=== PATIENT | female | born 1950 | race Caucasian/White ===

== ENCOUNTER 2018-06-24 16:40 | Outpatient (REF) | payer MEDICARE, BC, SELFPAY ==
[2018-06-24 21:26] LABS: Abs Immature Grans 0.03 k/cumm (0.0-0.09); Absolute Basophil Count 0.03 k/cumm (0.0-0.2); Absolute Eosinophil Count 0.08 k/cumm (0.0-0.7); Absolute Lymphocyte Count 1.24 k/cumm (1.2-3.4); Absolute Monocyte Count 0.46 k/cumm (0.11-0.7); Absolute Neutrophil Count 5.34 k/cumm (1.2-6.7); Basophils % 0.4; Eosinophils % 1.1; HCT 34.4 % (36.0-46.0); HGB 11.1 g/dL (12.0-15.5); Immature Grans % 0.4; Lymphocytes % 17.3; Mean Corp. HGB Concentration 32.3 g/dL (32.0-36.0); Mean Corpuscular Hemoglobin 26.9 pg (27.0-33.0); Mean Corpuscular Volume 83.3 fL (80-95); Mean Platelet Volume 9.9 fL (8.0-11.0); Monocytes % 6.4; Neutrophils % 74.4; Platelet Count 393 x1000/uL (130-400); RBC 4.13 m/cumm (4.00-5.20); RBC Distribution Width 13.4 % (11.7-14.6); White Blood Cell Count 7.18 k/cumm (4.4-10.8)
[2018-06-24 21:39] LABS: ALT 33 U/L (12-78); AST 20 U/L (15-37); Alkaline Phosphatase 98 U/L (46-116); Anion Gap 11.9 mmol/L (3-11); BUN 14 mg/dL (7-18); Bilirubin, Total 0.3 mg/dL (0.2-1.0); CO2 25.1 mmol/L (21.0-32.0); CREATININE 0.79 mg/dL (0.55-1.02); Calcium 9.6 mg/dL (8.5-10.1); Chloride 103 mmol/L (98-107); Glucose 114 mg/dL (70-100); Magnesium 1.8 mg/dL (1.8-2.4); Potassium 4.1 mmol/L (3.5-5.1); Sodium 140 mmol/L (136-145); Total Protein 6.9 g/dL (6.4-8.2)
== END 2018-06-24 17:00 ==
LOC: NCHCN 16:40
PROVIDERS: PCP Family Medicine; Visit Provider Family Medicine
DX: R00.2 Palpitations (principal); D64.9 Anemia, unspecified; E87.6 Hypokalemia; I10 Essential (primary) hypertension
CPT/HCPCS: 80053; 83735; 85025

== ENCOUNTER 2018-09-30 14:51 | Outpatient (REF) | payer MEDICARE, BC, SELFPAY ==
[2018-09-30 21:34] LABS: Abs Immature Grans 0.02 k/cumm (0.0-0.09); Absolute Basophil Count 0.05 k/cumm (0.0-0.2); Absolute Eosinophil Count 0.47 k/cumm (0.0-0.7); Absolute Lymphocyte Count 2.18 k/cumm (1.2-3.4); Absolute Monocyte Count 0.57 k/cumm (0.11-0.7); Absolute Neutrophil Count 3.76 k/cumm (1.2-6.7); Basophils % 0.7; Eosinophils % 6.7; HCT 31.7 % (36.0-46.0); HGB 9.8 g/dL (12.0-15.5); Immature Grans % 0.3; Lymphocytes % 30.9; Mean Corp. HGB Concentration 30.9 g/dL (32.0-36.0); Mean Corpuscular Hemoglobin 25.1 pg (27.0-33.0); Mean Corpuscular Volume 81.1 fL (80-95); Mean Platelet Volume 9.9 fL (8.0-11.0); Monocytes % 8.1; Neutrophils % 53.3; Platelet Count 334 x1000/uL (130-400); RBC 3.91 m/cumm (4.00-5.20); RBC Distribution Width 14.4 % (11.7-14.6); White Blood Cell Count 7.05 k/cumm (4.4-10.8)
[2018-09-30 22:08] LABS: Iron 22 ug/dL (50-175)
[2018-09-30 22:17] LABS: ALT 28 U/L (12-78); AST 11 U/L (15-37); Albumin 3.7 g/dL (3.4-5.0); Alkaline Phosphatase 115 U/L (46-116); Anion Gap 9.4 mmol/L (3-11); BUN 20 mg/dL (7-18); Bilirubin, Total 0.2 mg/dL (0.2-1.0); CO2 24.6 mmol/L (21.0-32.0); CREATININE 0.78 mg/dL (0.55-1.02); Calcium 8.8 mg/dL (8.5-10.1); Chloride 106 mmol/L (98-107); Ferritin 9 ng/mL (8-388); Glucose 134 mg/dL (70-100); Magnesium 1.6 mg/dL (1.8-2.4); Potassium 4.3 mmol/L (3.5-5.1); Sodium 140 mmol/L (136-145); TSH (W/Ref FT4) 1.95 uIU/mL (0.358-3.74); Total Protein 6.8 g/dL (6.4-8.2)
== END 2018-09-30 15:11 ==
LOC: NCHCN 14:51
PROVIDERS: PCP Family Medicine; Visit Provider Family Medicine
DX: D64.9 Anemia, unspecified (principal); E87.6 Hypokalemia; F32.9 Major depressive disorder, single episode, unspecified; I10 Essential (primary) hypertension; I25.10 Atherosclerotic heart disease of native coronary artery without angina pectoris
CPT/HCPCS: 80053; 82728; 83540; 83735; 84443; 85025

== ENCOUNTER 2019-01-18 15:27 | Outpatient (REF) | payer MEDICARE, BC, SELFPAY ==
[2019-01-18 21:54] LABS: Abs Immature Grans 0.01 k/cumm (0.0-0.09); Absolute Basophil Count 0.05 k/cumm (0.0-0.2); Absolute Eosinophil Count 0.47 k/cumm (0.0-0.7); Absolute Lymphocyte Count 1.85 k/cumm (1.2-3.4); Absolute Monocyte Count 0.58 k/cumm (0.11-0.7); Absolute Neutrophil Count 3.39 k/cumm (1.2-6.7); Basophils % 0.8; Eosinophils % 7.4; HCT 37.8 % (36.0-46.0); HGB 11.9 g/dL (12.0-15.5); Immature Grans % 0.2; Lymphocytes % 29.1; Mean Corp. HGB Concentration 31.5 g/dL (32.0-36.0); Mean Corpuscular Hemoglobin 27.2 pg (27.0-33.0); Mean Corpuscular Volume 86.3 fL (80-95); Mean Platelet Volume 9.7 fL (8.0-11.0); Monocytes % 9.1; Neutrophils % 53.4; Platelet Count 320 x1000/uL (130-400); RBC 4.38 m/cumm (4.00-5.20); White Blood Cell Count 6.35 k/cumm (4.4-10.8)
[2019-01-18 22:17] LABS: ALT 27 U/L (12-78); AST 20 U/L (15-37); Albumin 4.2 g/dL (3.4-5.0); Alkaline Phosphatase 95 U/L (46-116); Anion Gap 9.3 mmol/L (3-11); BUN 27 mg/dL (7-18); Bilirubin, Total 0.2 mg/dL (0.2-1.0); CO2 27.7 mmol/L (21.0-32.0); CREATININE 0.88 mg/dL (0.55-1.02); Calcium 9.4 mg/dL (8.5-10.1); Chloride 103 mmol/L (98-107); Ferritin 181 ng/mL (8-388); Folate 10.6 ng/mL (8.6-20.0); Glucose 146 mg/dL (70-100); Potassium 3.8 mmol/L (3.5-5.1); Sodium 140 mmol/L (136-145); Vitamin B12 357 pg/mL (193-986)
[2019-01-18 22:42] LABS: Iron 50 ug/dL (50-175); Total Iron Binding Capacity 348 ug/dL (250-450); Transferrin Sat 14 % (15-50)
== END 2019-01-18 15:47 ==
LOC: NCHCN 15:27
PROVIDERS: PCP Family Medicine; Visit Provider Family Medicine
DX: D64.9 Anemia, unspecified (principal); E11.9 Type 2 diabetes mellitus without complications; N39.0 Urinary tract infection, site not specified; R14.0 Abdominal distension (gaseous)
CPT/HCPCS: 80053; 82607; 82728; 82746; 83540; 83550; 85025; 87086

== ENCOUNTER 2019-08-19 18:16 | Outpatient (REF) | payer MEDICARE, BC, SELFPAY ==
[2019-08-19 21:07] LABS: COMMENT (LAB VIEW ONLY) 49.81 mg/dL; Microalb ug/mg Crea 25.5 ug/mg Cr
== END 2019-08-19 18:36 ==
LOC: NCHCN 18:16
PROVIDERS: PCP Family Medicine; Visit Provider Family Medicine
DX: E11.9 Type 2 diabetes mellitus without complications (principal)
CPT/HCPCS: 82043; 82570

== ENCOUNTER 2019-09-27 21:28 | Outpatient (REF) | payer MEDICARE, BC, SELFPAY ==
[2019-09-27 21:23] LABS: HGB 12.2 g/dL (12.0-15.5); Mean Corpuscular Hemoglobin 29.8 pg (27.0-33.0); Mean Corpuscular Volume 90.2 fL (80-95); Mean Platelet Volume 9.7 fL (8.0-11.0); Platelet Count 441 x1000/uL (130-400); RBC Distribution Width 13.3 % (11.7-14.6); White Blood Cell Count 9.89 k/cumm (4.4-10.8)
[2019-09-27 21:33] LABS: ALT 28 U/L (14-59); AST 17 U/L (15-37); Albumin 3.8 g/dL (3.4-5.0); Alkaline Phosphatase 82 U/L (46-116); Anion Gap 10.2 mmol/L (3-11); BUN 20 mg/dL (7-18); Bilirubin, Total 0.1 mg/dL (0.2-1.0); CO2 24.8 mmol/L (21.0-32.0); CREATININE 0.85 mg/dL (0.55-1.02); Calcium 9.9 mg/dL (8.5-10.1); Chloride 102 mmol/L (98-107); Glucose 127 mg/dL (74-106); Potassium 4.4 mmol/L (3.5-5.1); Sodium 137 mmol/L (136-145); Total Protein 6.3 g/dL (6.4-8.2)
== END 2019-09-27 21:48 ==
LOC: NCHCN 21:28
PROVIDERS: PCP Family Medicine; Visit Provider Family Medicine
DX: E78.5 Hyperlipidemia, unspecified (principal); D64.9 Anemia, unspecified; I10 Essential (primary) hypertension
CPT/HCPCS: 80053; 85027

== ENCOUNTER 2020-01-24 10:38 | Outpatient (REF) | payer MEDICARE, BC, SELFPAY ==
[2020-01-24 21:04] LABS: Anion Gap 8.2 mmol/L (3-11); BUN 17 mg/dL (7-18); CO2 28.8 mmol/L (21.0-32.0); CREATININE 0.93 mg/dL (0.55-1.02); Calcium 8.7 mg/dL (8.5-10.1); Chloride 100 mmol/L (98-107); Estimated GFR 59.78 (mL/min/1.73m2); Glucose 112 mg/dL (74-106); Potassium 4.1 mmol/L (3.5-5.1); Sodium 137 mmol/L (136-145)
[2020-01-24 21:14] LABS: Hemoglobin A1C 6.8 % (3.8-5.6)
== END 2020-01-24 10:58 ==
LOC: NCHCN 10:38
PROVIDERS: PCP Family Medicine; Visit Provider Nurse Practitioner Family
DX: I10 Essential (primary) hypertension (principal); E11.9 Type 2 diabetes mellitus without complications
CPT/HCPCS: 80048; 83036

== ENCOUNTER 2020-03-08 22:58 | Outpatient (REF) | payer MEDICARE, BC, SELFPAY ==
[2020-03-08 20:40] LABS: HCT 37.1 % (36.0-46.0); Mean Corp. HGB Concentration 32.3 g/dL (32.0-36.0); Mean Corpuscular Hemoglobin 28.8 pg (27.0-33.0); Mean Corpuscular Volume 89.2 fL (80-95); Mean Platelet Volume 9.9 fL (8.0-11.0); Platelet Count 453 x1000/uL (130-400); RBC 4.16 m/cumm (4.00-5.20); RBC Distribution Width 13.1 % (11.7-14.6); White Blood Cell Count 8.56 k/cumm (4.4-10.8)
[2020-03-08 20:48] LABS: Iron 48 ug/dL (50-170); Total Iron Binding Capacity 408 ug/dL (250-450); Transferrin Sat 12 % (15-50)
[2020-03-08 21:25] LABS: Ferritin 12 ng/mL (8-252)
== END 2020-03-08 23:18 ==
LOC: NCHCN 22:58
PROVIDERS: PCP Family Medicine; Visit Provider Nurse Practitioner Family
DX: M79.7 Fibromyalgia (principal); G43.909 Migraine, unspecified, not intractable, without status migrainosus; D64.9 Anemia, unspecified
CPT/HCPCS: 85027; 82728; 83540; 83550

== ENCOUNTER 2020-05-10 12:36 | Outpatient (REF) | payer MEDICARE, BC, SELFPAY ==
[2020-05-11 17:18] LABS: Abs Immature Grans 0.06 10^3/uL (0.0-0.06); Absolute Basophil Count 0.04 10^3/uL (0.0-0.2); Absolute Eosinophil Count 0.21 10^3/uL (0.0-0.7); Absolute Lymphocyte Count 1.32 10^3/uL (1.2-3.4); Absolute Monocyte Count 0.31 10^3/uL (0.1-0.8); Absolute Neutrophil Count 6.65 10^3/uL (1.2-6.7); Basophils % 0.5; Eosinophils % 2.4; HCT 39.2 % (36.0-46.0); Immature Grans % 0.7; Lymphocytes % 15.4; MCH 26.5 pg (27.0-33.0); MCHC 30.6 % (32.0-36.0); MCV 86.5 fL (80-95); MPV 10.7 fL (8.0-11.0); Monocytes % 3.6; Neutrophils % 77.4; Nucleated RBC 0 %; Platelet Count 379 10^3/uL (130-400); RBC 4.53 10^6/uL (3.93-5.22); RDW 13.3 % (11.7-14.6); RDW-SD 41.5 fL; WBC 8.59 10^3/uL (4.4-10.8)
[2020-05-11 17:20] LABS: ALT 20 U/L (14-59); AST 14 U/L (15-37); Albumin 3.9 g/dL (3.4-5.0); Alkaline Phosphatase 95 U/L (46-116); Anion Gap 8.7 mmol/L (3-11); BUN 22 mg/dL (7-18); Bilirubin, Total 0.2 mg/dL (0.2-1.0); CO2 28.3 mmol/L (21.0-32.0); CREATININE 1.14 mg/dL (0.55-1.02); Calcium 9.8 mg/dL (8.5-10.1); Chloride 99 mmol/L (98-107); Estimated GFR 47.26 (mL/min/1.73m2); Glucose 142 mg/dL (74-106); Magnesium 1.9 mg/dL (1.8-2.4); Potassium 3.8 mmol/L (3.5-5.1); Sodium 136 mmol/L (136-145); TSH (W/Ref FT4) 0.83 uIU/mL (0.36-3.74); Total Protein 6.8 g/dL (6.4-8.2)
== END 2020-05-10 12:56 ==
LOC: NCHCN 12:36
PROVIDERS: PCP Family Medicine; Visit Provider Family Medicine
DX: R53.1 Weakness (principal); R25.1 Tremor, unspecified
CPT/HCPCS: 80053; 83735; 84443; 85025

== ENCOUNTER 2020-11-08 15:50 | Outpatient (REF) | payer MEDICARE, BC, SELFPAY ==
[2020-11-08 14:44] LABS: HCT 33.6 % (36.0-46.0); HGB 10.8 g/dL (11.2-15.7); MCH 26.1 pg (27.0-33.0); MCHC 32.1 % (32.0-36.0); MCV 81.2 fL (80-95); MPV 9.7 fL (8.0-11.0); Platelet Count 377 10^3/uL (130-400); RBC 4.14 10^6/uL (3.93-5.22); RDW 13.1 % (11.7-14.6); RDW-SD 38.7 fL; WBC 6.51 10^3/uL (4.4-10.8)
== END 2020-11-08 15:51 | disposition home or self-care (01) ==
LOC: NCHCN 15:50
PROVIDERS: PCP Family Medicine; Visit Provider Family Medicine
DX: K92.2 Gastrointestinal hemorrhage, unspecified (principal); G89.29 Other chronic pain
CPT/HCPCS: 85027

== ENCOUNTER 2020-11-23 15:00 | Outpatient (REF) | payer MEDICARE, BC, SELFPAY ==
[2020-11-23 15:52] LABS: C-Reactive Protein 0.08 mg/dL (0.0-0.3)
[2020-11-23 21:32] LABS: HCT 32.8 % (36.0-46.0); HGB 10.1 g/dL (11.2-15.7); MCH 25.4 pg (27.0-33.0); MCHC 30.8 % (32.0-36.0); MCV 82.6 fL (80-95); Platelet Count 357 10^3/uL (130-400); RBC 3.97 10^6/uL (3.93-5.22); RDW 13.3 % (11.7-14.6); RDW-SD 40.4 fL; WBC 5.97 10^3/uL (4.4-10.8)
[2020-11-23 21:47] LABS: Rheumatoid Factor <8.6 IU/mL (<12.0)
[2020-11-26 05:26] LABS: Vitamin D 25 Total 29.2 ng/ml (30-100)
[2020-11-26 08:38] LABS: Cyclic Citrullinated Peptide <2.5 U/mL (<5.0)
[2020-11-26 14:41] LABS: ANA Interpretation Negative (Negative)
== END 2020-11-23 15:01 | disposition home or self-care (01) ==
LOC: NCHCN 15:00
PROVIDERS: PCP Family Medicine; Visit Provider Family Medicine
DX: K92.2 Gastrointestinal hemorrhage, unspecified (principal); M13.88 Other specified arthritis, other site; G89.29 Other chronic pain; F32.9 Major depressive disorder, single episode, unspecified; E55.9 Vitamin D deficiency, unspecified
CPT/HCPCS: 82306; 85027; 86200; 86038; 86140; 86431

== ENCOUNTER 2021-01-15 14:26 | Outpatient (REF) | payer MEDICARE, BC, SELFPAY ==
[2021-01-15 14:21] LABS: COMMENT (LAB VIEW ONLY) 56.27 mg/dL; Microalb ug/mg Crea 33.1 ug/mg Cr
== END 2021-01-15 14:27 | disposition home or self-care (01) ==
LOC: LBN 14:26
PROVIDERS: PCP Family Medicine; Visit Provider Family Medicine
DX: E11.9 Type 2 diabetes mellitus without complications (principal)
CPT/HCPCS: 82043; 82570

== ENCOUNTER 2021-03-08 14:11 | Outpatient (REF) | payer MEDICARE, BC, SELFPAY ==
[2021-03-08 14:36] LABS: HCT 33.8 % (36.0-46.0); HGB 10.1 g/dL (11.2-15.7); MCH 25.1 pg (27.0-33.0); MCHC 29.9 % (32.0-36.0); MCV 83.9 fL (80-95); Platelet Count 369 10^3/uL (130-400); RBC 4.03 10^6/uL (3.93-5.22); RDW 17.2 % (11.7-14.6); RDW-SD 53.3 fL; WBC 6.37 10^3/uL (4.4-10.8)
[2021-03-08 14:56] LABS: Anion Gap 8.7 mmol/L (3-11); BUN 23 mg/dL (7-18); CO2 27.3 mmol/L (21.0-32.0); CREATININE 0.8 mg/dL (0.55-1.02); Calcium 9.2 mg/dL (8.5-10.1); Chloride 102 mmol/L (98-107); Glucose 104 mg/dL (74-106); Potassium 4.8 mmol/L (3.5-5.1); Sodium 138 mmol/L (136-145)
== END 2021-03-08 14:12 | disposition home or self-care (01) ==
LOC: NCHCN 14:11
PROVIDERS: PCP Family Medicine; Visit Provider Family Medicine
DX: D50.9 Iron deficiency anemia, unspecified (principal); E11.9 Type 2 diabetes mellitus without complications; E78.5 Hyperlipidemia, unspecified; I10 Essential (primary) hypertension
CPT/HCPCS: 80048; 85027; 83735

== ENCOUNTER 2021-04-16 20:51 | Outpatient (REF) | payer MEDICARE, BC, SELFPAY ==
[2021-04-16 21:41] LABS: HCT 37.7 % (36.0-46.0); HGB 11.9 g/dL (11.2-15.7); MCH 27.2 pg (27.0-33.0); MCHC 31.6 % (32.0-36.0); MCV 86.3 fL (80-95); MPV 9.4 fL (8.0-11.0); Platelet Count 335 10^3/uL (130-400); RBC 4.37 10^6/uL (3.93-5.22); RDW 16.9 % (11.7-14.6); RDW-SD 53.5 fL; WBC 6.47 10^3/uL (4.4-10.8)
[2021-04-16 22:06] LABS: Ferritin 116 ng/mL (8-252)
[2021-04-16 22:16] LABS: Iron 46 ug/dL (50-170)
== END 2021-04-16 20:52 | disposition home or self-care (01) ==
LOC: NCHCN 20:51
PROVIDERS: PCP Family Medicine; Visit Provider Family Medicine
DX: D50.9 Iron deficiency anemia, unspecified (principal)
CPT/HCPCS: 85027; 82728; 83540

== ENCOUNTER 2021-06-27 11:47 | Outpatient (REF) | payer MEDICARE, BC, SELFPAY ==
[2021-06-27 22:31] LABS: HCT 33.2 % (36.0-46.0); HGB 10.5 g/dL (11.2-15.7); MCH 29.5 pg (27.0-33.0); MCHC 31.6 % (32.0-36.0); MCV 93.3 fL (80-95); MPV 9.8 fL (8.0-11.0); Platelet Count 322 10^3/uL (130-400); RBC 3.56 10^6/uL (3.93-5.22); RDW 13.1 % (11.7-14.6); RDW-SD 44.5 fL; WBC 6.02 10^3/uL (4.4-10.8)
== END 2021-06-27 11:48 | disposition home or self-care (01) ==
LOC: NCHCN 11:47
PROVIDERS: PCP Family Medicine; Visit Provider Family Medicine
DX: D50.9 Iron deficiency anemia, unspecified (principal)
CPT/HCPCS: 85027

== ENCOUNTER 2021-12-12 18:21 | Outpatient (REF) | payer MEDICARE, BC, SELFPAY | END 2021-12-12 18:22 | disposition home or self-care (01) | LOC: NCHCN 18:21 | PROVIDERS: PCP Family Medicine; Visit Provider Family Medicine | DX: R30.0 Dysuria (principal) | CPT/HCPCS: 87086 ==

== ENCOUNTER 2022-01-02 21:08 | Outpatient (REF) | payer MEDICARE, BC, SELFPAY ==
[2022-01-02 21:52] LABS: COMMENT (LAB VIEW ONLY) 62.11 mg/dL; Microalb ug/mg Crea 6.8 ug/mg Cr
[2022-01-02 21:55] LABS: Anion Gap 10.3 mmol/L (3-11); BUN 16 mg/dL (7-18); CO2 26.7 mmol/L (21.0-32.0); CREATININE 1.2 mg/dL (0.55-1.02); Calcium 9.2 mg/dL (8.5-10.1); Calculated LDL 158 mg/dL (<100); Chloride 100 mmol/L (98-107); Cholesterol 266 mg/dL (<200); Estimated GFR 44.29 (mL/min/1.73m2); Glucose 145 mg/dL (74-106); HDL Cholesterol 55 mg/dL (40-60); Sodium 137 mmol/L (136-145); Triglyceride 266 mg/dL (<150)
== END 2022-01-02 21:09 | disposition home or self-care (01) ==
LOC: NCHCN 21:08
PROVIDERS: PCP Family Medicine; Visit Provider Family Medicine
DX: E11.9 Type 2 diabetes mellitus without complications (principal); E78.5 Hyperlipidemia, unspecified; I10 Essential (primary) hypertension; R30.0 Dysuria
CPT/HCPCS: 80048; 80061; 87077; 82043; 82570; 87086; 87186

== ENCOUNTER 2022-03-14 11:31 | Outpatient (REF) | payer MEDICARE, BC, SELFPAY ==
[2022-03-14 15:28] LABS: Anion Gap 9.6 mmol/L (3-11); BUN 20 mg/dL (7-18); CO2 28.4 mmol/L (21.0-32.0); CREATININE 0.8 mg/dL (0.55-1.02); Calcium 9.1 mg/dL (8.5-10.1); Chloride 101 mmol/L (98-107); Glucose 134 mg/dL (74-106); Potassium 4.2 mmol/L (3.5-5.1); Sodium 139 mmol/L (136-145)
== END 2022-03-14 11:32 | disposition home or self-care (01) ==
LOC: NCHCN 11:31
PROVIDERS: PCP Family Medicine; Visit Provider Family Medicine
DX: D50.9 Iron deficiency anemia, unspecified (principal); I10 Essential (primary) hypertension
CPT/HCPCS: 80048; 85027

== ENCOUNTER 2022-04-15 17:56 | Outpatient (REF) | payer MEDICARE, BC, SELFPAY ==
[2022-04-15 16:12] LABS: BUN 18 mg/dL (7-18); CREATININE 0.9 mg/dL (0.55-1.02); Calcium 9.4 mg/dL (8.5-10.1); Chloride 101 mmol/L (98-107); Glucose 97 mg/dL (74-106); Sodium 137 mmol/L (136-145); TSH (W/Ref FT4) 1.02 uIU/mL (0.36-3.74)
[2022-04-15 16:14] LABS: Abs Immature Grans 0.02 10^3/uL (0.0-0.06); Absolute Basophil Count 0.05 10^3/uL (0.0-0.2); Absolute Eosinophil Count 0.17 10^3/uL (0.0-0.7); Absolute Lymphocyte Count 1.27 10^3/uL (1.2-3.4); Absolute Monocyte Count 0.54 10^3/uL (0.1-0.8); Absolute Neutrophil Count 6.01 10^3/uL (1.2-6.7); Basophils % 0.6; Eosinophils % 2.1; HCT 37.6 % (36.0-46.0); HGB 12.3 g/dL (11.2-15.7); Immature Grans % 0.2; Lymphocytes % 15.8; MCH 29.5 pg (27.0-33.0); MCHC 32.7 % (32.0-36.0); MCV 90 fL (80-95); MPV 10.1 fL (8.0-11.0); Monocytes % 6.7; Neutrophils % 74.6; Platelet Count 320 10^3/uL (130-400); RBC 4.17 10^6/uL (3.93-5.22); RDW 12.9 % (11.7-14.6); RDW-SD 42.5 fL; WBC 8.06 10^3/uL (4.4-10.8)
== END 2022-04-15 17:57 | disposition home or self-care (01) ==
LOC: NCHCN 17:56
PROVIDERS: PCP Family Medicine; Visit Provider Family Medicine
DX: R00.2 Palpitations (principal); K92.2 Gastrointestinal hemorrhage, unspecified; N39.0 Urinary tract infection, site not specified; R53.83 Other fatigue
CPT/HCPCS: 80048; 87077; 84443; 85025; 87086; 87186

== ENCOUNTER → 2022-04-29 10:28 | Outpatient (BNVA) | payer MEDICARE, BC, SELFPAY | PROVIDERS: PCP Family Medicine; Referring Provider Family Medicine; Visit Provider Surgery | DX: I25.2 Old myocardial infarction (principal); Z95.5 Presence of coronary angioplasty implant and graft; K21.9 Gastro-esophageal reflux disease without esophagitis; K92.1 Melena; K43.2 Incisional hernia without obstruction or gangrene | CPT/HCPCS: 99203 ==

== ENCOUNTER 2022-10-21 17:39 | Outpatient (REF) | payer MEDICARE, BC, SELFPAY | END 2022-10-21 17:40 | disposition home or self-care (01) | LOC: NCHCN 17:39 | PROVIDERS: PCP Family Medicine; Visit Provider Family Medicine | DX: R39.9 Unspecified symptoms and signs involving the genitourinary system (principal) | CPT/HCPCS: 87077; 87086; 87186 ==

== ENCOUNTER 2022-11-27 17:15 | Outpatient (REF) | payer MEDICARE, BC, SELFPAY ==
[2022-11-27 15:28] LABS: Abs Immature Grans 0.01 10^3/uL (0.0-0.06); Absolute Basophil Count 0.04 10^3/uL (0.0-0.2); Absolute Eosinophil Count 0.14 10^3/uL (0.0-0.7); Absolute Lymphocyte Count 1.76 10^3/uL (1.2-3.4); Absolute Monocyte Count 0.42 10^3/uL (0.1-0.8); Absolute Neutrophil Count 3.48 10^3/uL (1.2-6.7); Basophils % 0.7; Eosinophils % 2.4; HCT 37.7 % (36.0-46.0); HGB 12.4 g/dL (11.2-15.7); Immature Grans % 0.2; Lymphocytes % 30.1; MCH 29.9 pg (27.0-33.0); MCHC 32.9 % (32.0-36.0); MCV 91 fL (80-95); MPV 10.1 fL (8.0-11.0); Monocytes % 7.2; Neutrophils % 59.4; Platelet Count 342 10^3/uL (130-400); RBC 4.15 10^6/uL (3.93-5.22); RDW 12.6 % (11.7-14.6); RDW-SD 41.6 fL; WBC 5.85 10^3/uL (4.4-10.8)
[2022-11-27 15:30] LABS: ESR 8 mm/hr (0-30)
[2022-11-27 15:44] LABS: Hemoglobin A1C 6.1 % (<5.7)
[2022-11-27 16:18] LABS: ALT 41 U/L (14-59); AST 35 U/L (15-37); Albumin 4.1 g/dL (3.4-5.0); Alkaline Phosphatase 117 U/L (46-116); Anion Gap 5.2 mmol/L (3-11); BUN 12 mg/dL (7-18); Bilirubin, Total 0.4 mg/dL (0.2-1.0); CO2 28.8 mmol/L (21.0-32.0); CREATININE 0.9 mg/dL (0.55-1.02); Calcium 9.6 mg/dL (8.5-10.1); Calculated LDL 65 mg/dL (<100); Chloride 97 mmol/L (98-107); Cholesterol 154 mg/dL (<200); Estimated GFR 67.92 (mL/min/1.73m2); Glucose 112 mg/dL (74-106); HDL Cholesterol 67 mg/dL (40-60); Potassium 4.7 mmol/L (3.5-5.1); Sodium 131 mmol/L (136-145); TSH (W/Ref FT4) 2.03 uIU/mL (0.36-3.74); Total Protein 7.6 g/dL (6.4-8.2); Triglyceride 112 mg/dL (<150)
[2022-11-27 17:11] LABS: COMMENT (LAB VIEW ONLY) 27.45 mg/dL
[2022-11-28 13:07] LABS: Lyme Ab w Rflx to Lyme Confirm Negative (Negative)
[2022-11-29 18:17] LABS: Anaplasma phagocytophilum Negative (Negative); B. miyamotoi PCR Negative (Negative); Babesia divergens/MO-1 Negative (Negative); Babesia duncani Negative (Negative); Babesia microti Negative (Negative); Ehrlichia chaffeensis Negative (Negative); Ehrlichia ewingii/canis Negative (Negative); Ehrlichia muris eauclairensis Negative (Negative)
== END 2022-11-27 17:16 | disposition home or self-care (01) ==
LOC: NCHCN 17:15
PROVIDERS: PCP Family Medicine; Visit Provider Family Medicine
DX: I10 Essential (primary) hypertension (principal); E11.9 Type 2 diabetes mellitus without complications; R68.89 Other general symptoms and signs; G89.29 Other chronic pain
CPT/HCPCS: 80053; 80061; 85652; 87798; 82043; 82570; 83036; 84443; 85025; 86140; 86618

== ENCOUNTER 2023-04-16 18:22 | Outpatient (REF) | payer MEDICARE, BC, SELFPAY ==
[2023-04-16 20:57] LABS: HCT 35.6 % (36.0-46.0); HGB 11.9 g/dL (11.2-15.7); MCH 29.4 pg (27.0-33.0); MCHC 33.4 % (32.0-36.0); MCV 88 fL (80-95); Platelet Count 274 10^3/uL (130-400); RBC 4.05 10^6/uL (3.93-5.22); RDW 13.1 % (11.7-14.6); RDW-SD 42.5 fL; WBC 7.25 10^3/uL (4.4-10.8)
== END 2023-04-16 18:23 | disposition home or self-care (01) ==
LOC: NCHCN 18:22
PROVIDERS: PCP Family Medicine; Visit Provider Family Medicine
DX: R53.83 Other fatigue (principal); R35.0 Frequency of micturition
CPT/HCPCS: 85027; 87077; 87086; 87186

== ENCOUNTER 2023-05-15 12:11 | Outpatient (REF) | payer MEDICARE, BC, SELFPAY ==
[2023-05-15 16:44] LABS: Anion Gap 6.6 mmol/L (3-11); BUN 11 mg/dL (7-18); CO2 28.4 mmol/L (21.0-32.0); CREATININE 0.7 mg/dL (0.55-1.02); Calcium 9.4 mg/dL (8.5-10.1); Chloride 92 mmol/L (98-107); Estimated GFR 91.83 (mL/min/1.73m2); Glucose 105 mg/dL (74-106); Magnesium 1.6 mg/dL (1.8-2.4); Potassium 5.1 mmol/L (3.5-5.1); Sodium 127 mmol/L (136-145)
== END 2023-05-15 12:12 | disposition home or self-care (01) ==
LOC: NCHCN 12:11
PROVIDERS: PCP Family Medicine; Visit Provider Family Medicine
DX: R35.0 Frequency of micturition (principal); R25.2 Cramp and spasm; R79.89 Other specified abnormal findings of blood chemistry; R82.79 Other abnormal findings on microbiological examination of urine; E83.42 Hypomagnesemia; I10 Essential (primary) hypertension
CPT/HCPCS: 80048; 87077; 83735; 87086; 87186

== ENCOUNTER 2023-06-26 21:38 | Outpatient (REF) | payer MEDICARE, BC, SELFPAY | END 2023-06-26 21:39 | disposition home or self-care (01) | LOC: NCHCN 21:38 | PROVIDERS: PCP Family Medicine; Visit Provider Family Medicine | DX: R35.0 Frequency of micturition (principal); B96.29 Other Escherichia coli [E. coli] as the cause of diseases classified elsewhere | CPT/HCPCS: 87077; 87086; 87186 ==

== ENCOUNTER → 2023-10-14 13:24 | Outpatient (BNVA) | payer MEDICARE, BC, SELFPAY | PROVIDERS: PCP Family Medicine; Referring Provider Family Medicine; Visit Provider Psychiatry & Neurology Neurology | DX: R41.3 Other amnesia (principal); R29.6 Repeated falls; R26.89 Other abnormalities of gait and mobility; R20.2 Paresthesia of skin; E11.40 Type 2 diabetes mellitus with diabetic neuropathy, unspecified | CPT/HCPCS: 99215; G2212 ==

== ENCOUNTER 2023-10-21 10:07 | Outpatient (REF) | payer MEDICARE, BC, SELFPAY ==
[2023-10-21 21:22] LABS: ALT 38 U/L (14-59); AST 39 U/L (15-37); Albumin 3.8 g/dL (3.4-5.0); Alkaline Phosphatase 103 U/L (46-116); Anion Gap 9.1 mmol/L (3-11); BUN 12 mg/dL (7-18); Bilirubin, Total 0.4 mg/dL (0.2-1.0); CO2 28.9 mmol/L (21.0-32.0); CREATININE 0.8 mg/dL (0.55-1.02); Calcium 9.5 mg/dL (8.5-10.1); Calculated LDL 86 mg/dL (<100); Chloride 103 mmol/L (98-107); Cholesterol 173 mg/dL (<200); Estimated GFR 78.24 (mL/min/1.73m2); Glucose 91 mg/dL (74-106); HDL Cholesterol 60 mg/dL (40-60); Potassium 4.3 mmol/L (3.5-5.1); Sodium 141 mmol/L (136-145); Total Protein 7.2 g/dL (6.4-8.2); Triglyceride 135 mg/dL (<150)
[2023-10-23 12:26] LABS: Albumin 62.4 % (55.8-66.1); Albumin g/dL 4.2 g/dL (3.6-5.2); Total Protein 6.8 g/dL (6.3-8.2)
== END 2023-10-21 10:08 | disposition home or self-care (01) ==
LOC: NCHCN 10:07
PROVIDERS: PCP Family Medicine; Visit Provider Family Medicine
DX: E78.5 Hyperlipidemia, unspecified (principal); E11.40 Type 2 diabetes mellitus with diabetic neuropathy, unspecified
CPT/HCPCS: 80053; 80061; 84165

== ENCOUNTER 2023-12-16 14:48 | Outpatient (REF) | payer MEDICARE, BC, SELFPAY | END 2023-12-16 14:49 | disposition home or self-care (01) | LOC: NCHCN 14:48 | PROVIDERS: PCP Family Medicine; Visit Provider Family Medicine | DX: R30.0 Dysuria (principal) | CPT/HCPCS: 87086 ==

== ENCOUNTER 2024-02-02 09:50 | Outpatient (REF) | payer MEDICARE, BC, SELFPAY ==
[2024-02-02 14:24] LABS: HCT 37.3 % (36.0-46.0); MCH 28.8 pg (27.0-33.0); MCHC 32.2 % (32.0-36.0); MCV 89 fL (80-95); MPV 9.7 fL (8.0-11.0); Platelet Count 330 10^3/uL (130-400); RBC 4.17 10^6/uL (3.93-5.22); RDW-SD 42.4 fL; WBC 7.93 10^3/uL (4.4-10.8)
[2024-02-02 14:59] LABS: TSH (W/Ref FT4) 1.76 uIU/mL (0.36-3.74); Vitamin B12 1158 pg/mL (193-986)
== END 2024-02-02 09:51 | disposition home or self-care (01) ==
LOC: NCHCN 09:50
PROVIDERS: PCP Family Medicine; Visit Provider Family Medicine
DX: D50.9 Iron deficiency anemia, unspecified (principal); R53.83 Other fatigue; R20.2 Paresthesia of skin; R26.89 Other abnormalities of gait and mobility
CPT/HCPCS: 85027; 82607; 84443

== ENCOUNTER → 2024-02-29 08:07 | Outpatient (BNVA) | payer MEDICARE, BC, SELFPAY | PROVIDERS: PCP Family Medicine; Referring Provider Family Medicine; Visit Provider Psychiatry & Neurology Neurology | DX: G56.01 Carpal tunnel syndrome, right upper limb (principal); G56.23 Lesion of ulnar nerve, bilateral upper limbs; R41.3 Other amnesia; R26.89 Other abnormalities of gait and mobility; R29.6 Repeated falls; R20.2 Paresthesia of skin; E11.40 Type 2 diabetes mellitus with diabetic neuropathy, unspecified | CPT/HCPCS: 95910; 99215 ==

== ENCOUNTER 2024-08-23 15:01 | Outpatient (REF) | payer MEDICARE, BC, SELFPAY ==
[2024-08-23 21:22] LABS: ALT 81 U/L (14-59); AST 104 U/L (15-37); Albumin 3.6 g/dL (3.4-5.0); Alkaline Phosphatase 97 U/L (46-116); Anion Gap 6.8 mmol/L (3-11); BUN 7 mg/dL (7-18); Bilirubin, Total 0.41 mg/dL (0.2-1.0); CO2 31.2 mmol/L (21.0-32.0); Calcium 9.3 mg/dL (8.5-10.1); Chloride 103 mmol/L (98-107); Creatine Kinase 975 U/L (26-192); Estimated GFR 59.49 (mL/min/1.73m2); Glucose 108 mg/dL (74-106); Potassium 4.5 mmol/L (3.5-5.1); Sodium 141 mmol/L (136-145); Total Protein 7.2 g/dL (6.4-8.2)
== END 2024-08-23 15:02 | disposition home or self-care (01) ==
LOC: NCHCN 15:01
PROVIDERS: PCP Family Medicine; Visit Provider Family Medicine
DX: M62.82 Rhabdomyolysis (principal); R94.5 Abnormal results of liver function studies
CPT/HCPCS: 80053; 82550

== ENCOUNTER 2024-09-01 14:13 | Outpatient (REF) | payer MEDICARE, BC, SELFPAY | END 2024-09-01 14:14 | disposition home or self-care (01) | LOC: NCHCN 14:13 | PROVIDERS: PCP Family Medicine; Visit Provider Family Medicine | DX: R30.0 Dysuria (principal); R82.89 Other abnormal findings on cytological and histological examination of urine | CPT/HCPCS: 87086 ==

== ENCOUNTER 2024-11-18 21:24 | Outpatient (REF) | payer MEDICARE, BC, SELFPAY ==
[2024-11-18 21:55] LABS: HCT 34.7 % (36.0-46.0); HGB 11.3 g/dL (11.2-15.7); MCH 28.5 pg (27.0-33.0); MCHC 32.6 % (32.0-36.0); MCV 88 fL (80-95); MPV 9.5 fL (8.0-11.0); Platelet Count 374 10^3/uL (130-400); RBC 3.96 10^6/uL (3.93-5.22); RDW 12.1 % (11.7-14.6); RDW-SD 39.3 fL; WBC 6.76 10^3/uL (4.4-10.8)
[2024-11-18 21:56] LABS: Iron 57 ug/dL (50-170); Total Iron Binding Capacity 414 ug/dL (250-450); Transferrin Sat 14 % (15-50)
[2024-11-18 22:23] LABS: ALT 30 U/L (14-59); AST 17 U/L (15-37); Albumin 3.8 g/dL (3.4-5.0); Alkaline Phosphatase 89 U/L (46-116); BUN 13 mg/dL (7-18); Bilirubin, Total 0.4 mg/dL (0.2-1.0); CREATININE 0.8 mg/dL (0.55-1.02); Calcium 9.8 mg/dL (8.5-10.1); Chloride 101 mmol/L (98-107); Estimated GFR 77.75 (mL/min/1.73m2); Ferritin 11 ng/mL (8-252); Folate 14.5 ng/mL (8.6-20.0); Glucose 111 mg/dL (74-106); Magnesium 1.8 mg/dL (1.8-2.4); Potassium 4.9 mmol/L (3.5-5.1); Sodium 137 mmol/L (136-145); TSH (W/Ref FT4) 1.11 uIU/mL (0.36-3.74); Total Protein 6.7 g/dL (6.4-8.2); Vitamin B12 1116 pg/mL (193-986)
== END 2024-11-18 21:25 | disposition home or self-care (01) ==
LOC: NCHCN 21:24
PROVIDERS: PCP Family Medicine; Visit Provider Family Medicine
DX: D50.9 Iron deficiency anemia, unspecified (principal); R53.83 Other fatigue
CPT/HCPCS: 80053; 85027; 82607; 82728; 82746; 83540; 83550; 83735; 84443

== ENCOUNTER → 2024-12-05 09:02 | Outpatient (BNVA) | payer MEDICARE, BC, SELFPAY | PROVIDERS: PCP Family Medicine; Referring Provider Family Medicine; Visit Provider Psychiatry & Neurology Neurology | DX: R41.3 Other amnesia (principal); R26.89 Other abnormalities of gait and mobility; R29.6 Repeated falls; R20.2 Paresthesia of skin; E11.40 Type 2 diabetes mellitus with diabetic neuropathy, unspecified; G56.01 Carpal tunnel syndrome, right upper limb; G56.23 Lesion of ulnar nerve, bilateral upper limbs | CPT/HCPCS: 99215 ==

== ENCOUNTER → 2025-02-01 09:10 | Outpatient (BNVA) | payer MEDICARE, BC, SELFPAY | PROVIDERS: PCP Family Medicine; Referring Provider Family Medicine; Visit Provider Psychiatry & Neurology Neurology | DX: R41.3 Other amnesia (principal); R26.89 Other abnormalities of gait and mobility; R29.6 Repeated falls; R20.2 Paresthesia of skin; E11.40 Type 2 diabetes mellitus with diabetic neuropathy, unspecified; G56.01 Carpal tunnel syndrome, right upper limb; G56.23 Lesion of ulnar nerve, bilateral upper limbs | CPT/HCPCS: 99215 ==

== ENCOUNTER 2025-03-02 12:07 | Outpatient (REF) | payer MEDICARE, BC, SELFPAY ==
[2025-03-02 15:47] LABS: COMMENT (LAB VIEW ONLY) 52.62 mg/dL; Microalb ug/mg Crea 13.7 ug/mg Cr
== END 2025-03-02 12:08 | disposition home or self-care (01) ==
LOC: NCHCN 12:07
PROVIDERS: PCP Family Medicine; Visit Provider Family Medicine
DX: E11.9 Type 2 diabetes mellitus without complications (principal)
CPT/HCPCS: 82043; 82570

== ENCOUNTER 2025-07-18 10:55 | Outpatient (REF) | payer MEDICARE, BC, SELFPAY | END 2025-07-18 10:56 | disposition home or self-care (01) | LOC: NCHCN 10:55 | PROVIDERS: PCP Family Medicine; Visit Provider Family Medicine | DX: R39.9 Unspecified symptoms and signs involving the genitourinary system (principal) | CPT/HCPCS: 87077; 87086; 87186 ==

== ENCOUNTER 2025-08-01 15:41 | Outpatient (REF) | payer MEDICARE, BC, SELFPAY ==
[2025-08-03 12:00] LABS: Bacterial Vaginosis (BV) Negative (Negative); Candida glabrata Negative (Negative); Candida species group Positive (Negative)
== END 2025-08-01 15:42 | disposition home or self-care (01) ==
LOC: NCHCN 15:41
PROVIDERS: PCP Family Medicine; Visit Provider Family Medicine
DX: B37.31 Acute candidiasis of vulva and vagina (principal); R30.0 Dysuria
CPT/HCPCS: 81513; 87077; 87481; 87661; 87086; 87186